=== PATIENT | female | born 1980 | race Caucasian/White ===

== ENCOUNTER 2020-03-06 08:13 | Outpatient (CLI) | payer BC ==
--- NOTE | 2020-03-06 10:20 | ULT ---
ULTRASOUND ABDOMEN LIMITED: (RIGHT UPPER QUADRANT) DATE: 03/06/2020 HISTORY: 40-year-old female with right upper quadrant abdominal pain. FINDINGS: Gallbladder: Multiple mobile gallstones, on the order of 8-10 mm in size each. Normal mural thickness . No sonographic Perez's sign. Common duct: 5 mm. Liver: Echogenicity within normal limits. 1 cm cyst in left lobe. Pancreas: Distal body and tail obscured by shadowing from bowel gas. No sonographic abnormality of th e head identified. Right kidney: No hydronephrosis. IMPRESSION: 1. Cholelithiasis. 2. At least one small hepatic cyst. CEDRIC Hunt POS: JIN
== END 2020-03-06 08:14 | disposition home or self-care (01) ==
LOC: SCSULT 08:13
PROVIDERS: ATTEND Internal Medicine
DX: R10.11 Right upper quadrant pain (principal); K80.20 Calculus of gallbladder without cholecystitis without obstruction; K76.89 Other specified diseases of liver
CPT/HCPCS: 76705

== ENCOUNTER 2020-04-19 06:37 | Outpatient (CLI) | payer BC, OTHER ==
[2020-04-19 14:00] LABS: #Eosinphils 0.1 thou/uL (0.0-0.7); #Lymphocytes 1.9 thou/uL (1.20-3.40); #Monocytes 0.5 thou/uL (0.11-0.59); #Neutrophils 3.3 thou/uL (1.40-6.50); %Basophils 0.1 % (0.0-1.0); %Eosinophils 1.1 % (0.0-10.0); %Lymphocytes 32.3 % (21.0-51.0); %Monocytes 9.2 % (0.0-10.0); %Neutrophils 57.3 % (42.0-75.0); Hemoglobin 11.7 g/dL (12.0-16.0); Mean Corpuscular HGB CONC 32.3 g/dL (32.0-36.0); Mean Corpuscular Hemoglobin 27.9 pg (27.0-31.0); Mean Corpuscular Volume 86.6 fL (78.0-98.0); Platelet Count 397 thou/uL (130-400); RBC Distribution Width 11.1 % (11.5-14.5); White Blood Cell (WBC) Count 5.8 thou/uL (4.8-10.8)
[2020-04-19 14:20] LABS: ALT (SGPT) 12 U/L (8-55); AST (SGOT) 14 U/L (5-34); Albumin 4.5 g/dL (3.5-5.0); Alkaline Phosphatase 65 U/L (40-110); Anion Gap 13 mmol/L (10-20); BUN (Urea Nitrogen) 6 mg/dL (7.0-18.7); Bilirubin, Total 0.5 mg/dL (0.2-1.2); Calc. Creatinine Clearance 0 mL/min (70-130); Calcium 8.6 mg/dL (7.8-10.44); Carbon Dioxide 24 mmol/L (22-29); Chloride 106 mmol/L (98-107); Estimated GFR-MDRD 80; Globulin 3.1 g/dL (2.4-3.5); Glucose 88 mg/dL (70-105); Protein, Total 7.6 g/dL (6.0-8.3); Sodium 139 mmol/L (136-145)
[2020-04-20 17:20] LABS: SARS-CoV-2 MS2 Positive; SARS-CoV-2 N Gene Negative; SARS-CoV-2 S Gene Negative; SARS-CoV-2 orf1ab Negative
== END 2020-04-19 06:38 | disposition home or self-care (01) ==
LOC: LABBT 06:37
PROVIDERS: ATTEND Surgery
DX: Z01.812 Encounter for preprocedural laboratory examination (principal); Z11.59 Encounter for screening for other viral diseases; K80.20 Calculus of gallbladder without cholecystitis without obstruction
CPT/HCPCS: 80053; 85025; 87635; U0003

== ENCOUNTER 2020-04-23 09:16 | Day surgery (SDC) | payer BC ==
[2020-04-19 12:16] VITALS: BMI 23.8
[2020-04-23] MEDS ORDERED: Acetaminophen 500 MG TAB ONE (10:25)
[2020-04-23] MEDS ORDERED: Ketorolac Tromethamine 30 MG/ML VIAL ONE (10:25)
[2020-04-23] MEDS ORDERED: SUGAMMADEX SODIUM 200 MG/2 ML VIAL ONE (10:46)
[2020-04-23] MEDS ORDERED: Famotidine/PF 20 mg/2ml Vial ONE (10:46)
[2020-04-23] MEDS ORDERED: Fentanyl 100 MCG/2 ML VIAL ONE ×2 (10:46→14:00)
[2020-04-23] MEDS ORDERED: Meperidine HCl/PF 25 MG/ML VIAL ONE (10:46)
[2020-04-23] MEDS ORDERED: Iopamidol 50 ML FS ONE (10:47)
[2020-04-23] MEDS ORDERED: Bupivacaine 0.25% HCL 30 ML VIAL ONE (10:47)
[2020-04-23] MEDS ORDERED: Lidocaine 1% w/Epinephrine 1:100K 20 ML VIAL ONE (10:47)
[2020-04-23] MEDS ORDERED: Midazolam HCl 2 mg/2 ml Vial ONE (12:18)
[2020-04-23] MEDS ORDERED: Ondansetron PF 4 MG/2 ML Vial ONE (13:01)
[2020-04-23] MEDS ORDERED: Metoclopramide HCl 10 MG/2 ML VIAL ONE (13:01)
[2020-04-23] MEDS ORDERED: PROPOFOL 200 MG/20 ML VIAL ONE (13:01)
[2020-04-23] MEDS ORDERED: Lidocaine 1% PF 5 ML VIAL ONE (13:01)
[2020-04-23] MEDS ORDERED: Rocuronium Bromide 10 MG/ML (10ML VIAL) ONE (13:01)
[2020-04-23] MEDS ORDERED: Dexamethasone 20 MG/5 ML VIAL ONE (13:01)
--- NOTE | 2020-04-23 15:16 | RAD ---
OPERATIVE CHOLANGIOGRAM: Date: 04/23/2020 A single fluoroscopic image is presented from OR during operative cholangiogram procedure with cholec ystectomy. FINDINGS/IMPRESSION: Common duct is opacified. There is a focal filling defect in the upper common duct near the junction with the cystic duct. A focal retained stone at this location cannot be excluded. The lower common duct is unremarkable and there is spill into the duodenum. POS: AH
--- NOTE | 2020-04-23 17:01 | PDOC.OP ---
Operative Note - Operative Note Operative Note: DATE OF PROCEDURE: 04/23/2020 PROCEDURES: Laparoscopic cholecystectomy with intraoperative cholangiogram. SURGEON: Owen Odell M.D. PREOPERATIVE DIAGNOSIS: Symptomatic cholelithiasis POSTOPERATIVE DIAGNOSIS: Symptomatic cholelithiasis FINDINGS: Omental adhesions to chronically distended thin-walled gallbladder. Normal intraoperative cholangiogram HISTORY: Patient with signs and symptoms of biliary colic. Laparoscopic cholecystectomy was recommended for symptomatic relief and prevention of future episodes. Intraoperative cholangiogram was also recommended due to a history of elevated LFTs with a previous episode. PROCEDURE: After informed consent was obtained and appropriate preoperative antibiotics were administered, the patient was taken to the operating room and placed in the supine position and general endotracheal anesthesia was administered. The stomach was decompressed with an OG tube and the abdomen was prepped and draped in standard sterile fashion. Local anesthesia was infused to the skin and subcutaneous tissues at the umbilical level. A transverse skin incision was made. The fascia was elevated and a Veress needle was placed into the abdominal cavity without difficulty. Opening pressure was less than 5 and carbon dioxide gas easily insufflated to an intra-abdominal pressure of 15, which the patient tolerated well. The Veress needle was withdrawn and a [place] port advanced under direct vision. The abdominal cavity was carefully examined. There was no evidence of Veress needle or of trocar injury. Local anesthesia was infused to the skin and subcutaneous tissues at the epigastric, right upper quadrant, and right lateral abdominal sites and trocars were placed under direct vision of the laparoscope. The fundus of the gallbladder was grasped and retracted superiorly. The infundibulum was grasped and retracted laterally. The serosa was stripped inferiorly at the level of the neck of the gallbladder exposing the cystic duct and artery which were traced clearly to their insertion in the gallbladder. These were dissected free circumferentially and the cystic duct was clipped at the level of the neck of the gallbladder. The cystic artery was clipped but not divided. An incision was made in the cystic duct inferior to the clip and the cystic duct was palpated with no stones palpable. Clear bile was seen to flow from the cystic duct incision. A cholangiogram catheter was introduced and placed into the cystic duct and secured with a clip. A cholangiogram was obtained which showed an adequate length of cystic duct. There was normal filling of the common bile duct with free flow of contrast into the duodenum. There was normal retrograde flow into the common hepatic duct beyond the level of the bifurcation without filling defects. The cholangiogram catheter was removed and the cystic duct clipped below the incision in the cystic duct. The cystic duct was divided between these clips and the previously placed clip. The cystic artery was clipped and divided between the previously placed clips. The gallbladder was then dissected free of the gallbladder bed using hook electrocautery. Due to the thin-walled nature of the gallbladder, some bile was spilled during this process but no stones were lost and all of the bowel was suctioned out. Prior to complete removal of the gallbladder from the gallbladder bed, the area of the cystic duct and artery stumps was examined. The clips were in good position completely across these structures and there was no bleeding and no leakage of bile. The gallbladder was then placed into an EndoCatch bag and drawn out through the epigastric incision. The epigastric trocar was replaced and the operative site easily irrigated to clear. There was no significant bleeding or residual bile. The epigastric trocar was removed and the fascia closed under direct laparoscopic vision with a 0 Vicryl suture on a [place]Nee needle in a [id number] manner with excellent technical result. The right upper quadrant and right lateral abdominal trocars were removed and hemostasis verified. Carbon dioxide gas was allowed to desufflate through the umbilical trocar which was then removed. Due to the patient's thin body habitus the fascia at the umbilicus was easily visible through the skin incision and this was closed with a single 0 Vicryl suture on a UR 6 needle under direct vision. The skin incisions were closed with 4-0 subcuticular Monocryl sutures and Dermabond dressings were placed. The patient was extubated and taken to the recovery room in good condition. There were no complications. ESTIMATED BLOOD LOSS: Minimal. SPECIMEN : Gallbladder and contents.
== END 2020-04-23 15:45 | disposition home or self-care (01) ==
LOC: SDC 09:16
PROVIDERS: ATTEND Surgery
PROC: 0FT44ZZ Resection of Gallbladder, Percutaneous Endoscopic Approach (ICD-10-PCS; principal; 2020-04-23)
PROC: BF121ZZ Fluoroscopy of Gallbladder using Low Osmolar Contrast (ICD-10-PCS; principal; 2020-04-23)
DX: K80.10 Calculus of gallbladder with chronic cholecystitis without obstruction (principal); E89.0 Postprocedural hypothyroidism; Z79.899 Other long term (current) drug therapy
CPT/HCPCS: 47532; 88304; J0690; J1100; J1885; J2001; J2175; J2250; J2405; J2704; J2765; J3010; Q9967; S0020; S0028